=== PATIENT | female | born 1990 | race African-American/Black ===

== ENCOUNTER 2019-11-21 03:48 | Emergency (ER) | payer OTHER, SELFPAY ==
[2019-11-21] VITALS (7 sets, daily range): BP systolic 122–151; BP diastolic 85–99; PULSE 67–93; RESP 15–17; TEMP 36.3–36.6; O2SAT 96–100
--- NOTE | ~2019-11-21 | XR_ITS ---
EXAMINATION: XR chest 1V portable DATE: 11/21/2019 04:14 INDICATION: Sternal to left-sided chest pain and congestion TECHNIQUE: frontal view of the chest was obtained. COMPARISON: Chest radiograph dated 03/01/2019 FINDINGS: Calcified nodules in the left upper lung zone superimposed over a cardiac lead which along with calci fied left hilar lymph nodes consistent with old granulomatous disease. No other airspace opacities, p ulmonary edema, pleural effusion or pneumothorax. The cardiomediastinal silhouette is normal. Visuali zed bones and soft tissues are unremarkable. IMPRESSION: 1. No acute cardiopulmonary disease. Reviewed, dictated and finalized at [facility].
--- NOTE | 2019-11-21 03:58 | ECG_ITS ---
Measurements Intervals Miller Rate: 76 P: 50 AL: 174 QRS: 71 QRSD: 96 T: 31 QT: 395 QTc: 446 Interpretive Statements SINUS RHYTHM NONSPECIFIC T-WAVE ABNORMALITY- ANT/INF LEADS BORDERLINE ECG Electronically Signed On 11-21-2019 7:19:41 CDT by Tyrone Bethea D.O.
--- NOTE | 2019-11-21 04:01 | ED.CHESTPAIN ---
HPI - Chest Pain General Chief Complaint: Chest Pain Stated Complaint: cp, barnhart, high bp Time Seen by Provider: 11/21/19 03:52 History of Present Illness HPI narrative: Diffuse headache for the past several hours. Gradual onset. Located throughout entire head. throbbing in quality. Shortly after onset of the headache she also developed chest pain. This is sharp pain in the center of her chest. Intermittent. No SOB, Fever, cough, nausea, weakness, numbness. She does get frequent headaches. Related Data Home Medications Medication Instructions Recorded Confirmed No Home Medications 11/21/19 Allergies Allergy/AdvReac Type Severity Reaction Status Date / Time tramadol Allergy Hives Verified 11/21/19 03:55 Review of Systems Review of Systems: All systems reviewed & are unremarkable except as noted in HPI and below Constitutional: Constitutional: Denies fever(s) and Denies weakness Eyes: Eyes: Denies change in vision Cardiovascular: Cardiovascular: Reports chest pain Respiratory: Respiratory: Denies dyspnea Gastrointestinal: Gastrointestinal: Denies nausea Neurologic: Reports headache(s) [facility] Past Medical History Medical History (Updated 11/21/19 @ 05:17 by Wiley Mcguire MD) Healthy adult HTN (hypertension) Surgical History Surgical History No pertinent past surgical history Social History Social History Smoking status: Never smoker Gender identity (if verbalized by the patient): Female Exam Const: General: healthy appearing, no acute distress and alert Orientation/consciousness: patient oriented x3 HENMT: Head: normal to inspection Eyes: Pupils: Equal, round and reactive pupils present Neck: Neck: normal visual inspection and no lymphadenopathy Chest: Chest palpation & inspection: no tenderness Resp: Effort & Inspection: normal respiratory effort Auscultation: clear to auscultation bilaterally, no rales, no rhonchi and no wheezes Cardio: Jugular venous distension: no JVD Rate: regular rate Rhythm: regular rhythm Heart sounds: no murmurs GI: Inspection: non-distended GI Palp: Yes Soft to palpation and No Tenderness to palpation present (GI) Skin: General skin exam: normal color Neuro: General: patient oriented x3, moves all extremities, no focal motor deficits and CN's II-XI intact bilaterally Speech: normal speech Extrem: General: no edema Psych: Appearance: well kempt Affect: normal affect Course Vital Signs Vital signs: Vital Signs Temperature 36.3 C L 11/21/19 03:52 Pulse Rate 75 11/21/19 03:52 Respiratory Rate 16 11/21/19 03:52 Blood Pressure 151/94 H 11/21/19 03:52 Pulse Oximetry 100 11/21/19 03:52 Temperature 36.6 C 11/21/19 05:26 Pulse Rate 69 11/21/19 05:26 Respiratory Rate 17 11/21/19 05:26 Blood Pressure 130/97 H 11/21/19 05:26 Pulse Oximetry 100 11/21/19 05:26 MDM - Chest Pain MDM Narrative Medical decision making narrative: BARNHART and chest pain both significantly improved with treatment. Chest pain present for more than 3 hours prior to arrival. I do not believe there would be any benefit to keeping her for a 3 hour troponin. Medical Records Data Attestation: I reviewed the patient's medical records. Lab Data Attestation: I reviewed the patient's lab results. Result diagrams: 11/21/19 04:03 11/21/19 04:21 Labs: Lab Results 11/21/19 11/21/19 Range/Units 04:03 04:21 WBC 9.9 (4.5-10.0) K/mm3 RBC 5.26 (4.2-5.4) M/mm3 Hgb 13.5 (12.0-15.0) g/dL Hct 41.9 (37.0-47.0) % MCV 79.7 L (80-100) fl MCH 25.7 L (26-34) pg MCHC 32.2 (32-36) g/dl RDW 13.4 (11.5-14.5) % Plt Count 298 (150-375) k/mm3 MPV 10.2 (7.4-10.4) fl Immature Gran % (Auto) 0.2 (0-0.5) % Neut % (Auto) 50.9 (45.5-73.1) % Lymph % (Auto) 36.1 (18.3-44.2) %
[2019-11-21 04:08] LABS: Basophils Absolute Auto 0.1 K/mm3 (0.0-0.1); Basophils Percent Auto 0.6 % (0.2-1.2); Eosinophils Absolute Auto 0.4 K/mm3 (0-0.3); Eosinophils Percent Auto 4.3 % (0-4.4); Hematocrit 41.9 % (37.0-47.0); Hemoglobin 13.5 g/dL (12.0-15.0); Immature Granulocyte Absolute 0.02 K/mm3 (0.00-0.031); Immature Granulocyte Percent A 0.2 % (0-0.5); Lymphocytes Absolute Auto 3.56 K/mm3 (0.9-3.2); Lymphocytes Percent Auto 36.1 % (18.3-44.2); Mean Corpuscular HGB Conc 32.2 g/dl (32-36); Mean Corpuscular Hemoglobin 25.7 pg (26-34); Mean Corpuscular Volume 79.7 fl (80-100); Mean Platelet Volume 10.2 fl (7.4-10.4); Monocytes Absolute Auto 0.8 K/mm3 (0.1-0.6); Monocytes Percent Auto 7.9 % (2.6-8.5); Neutrophils Percent Auto 50.9 % (45.5-73.1); Platelet Count Result 298 k/mm3 (150-375); Red Blood Count 5.26 M/mm3 (4.2-5.4); Red Cell Distribution Width 13.4 % (11.5-14.5); White Blood Count 9.9 K/mm3 (4.5-10.0)
[2019-11-21] MEDS: KETOROLAC 30 MG/ML VIAL (*BKC) IV PUSH (04:10)
[2019-11-21] MEDS: METOCLOPRAMIDE HCL INJ 10 MG/2 ML VIAL IV PUSH (04:12)
[2019-11-21] MEDS: diphenhydrAMINE HCl INJ 50 MG/ML VIAL 25 MG IV PUSH (04:12)
[2019-11-21 04:38] LABS: Anion Gap 7 mmol/L (8-16); Blood Urea Nitrogen 8 mg/dL (7-17); Calcium 8.7 mg/dL (8.4-10.2); Carbon Dioxide 26 mmol/L (22-30); Chloride 105 mmol/L (98-107); Estimated Glomerular Filt Rate > 60; Glucose 88 mg/dL (65-105); Potassium 3.9 mmol/L (3.4-5.0); Sodium 138 mmol/L (137-145)
[2019-11-21 04:50] LABS: Troponin I < 0.012 ng/mL (0.000-0.034)
== END 2019-11-21 05:27 | disposition home or self-care (01) ==
PROVIDERS: Emergency Provider Emergency Medicine
DX: R51 Headache (principal); R07.89 Other chest pain; I10 Essential (primary) hypertension
CPT/HCPCS: 36415; 71045; 80048; 84484; 85025; 93005; 96374; 96375; 99284; J0131; J1200; J1885; J2765

== ENCOUNTER 2020-10-11 15:06 | Emergency (ER) | payer OTHER, SELFPAY ==
[2020-10-11 15:20] VITALS: BP 177/117; PULSE 75; RESP 18; TEMP 37.3; O2SAT 100
[2020-10-11 15:31] LABS: Basophils Absolute Auto 0.1 K/mm3 (0.0-0.1); Basophils Percent Auto 0.7 % (0.2-1.2); Eosinophils Absolute Auto 0.2 K/mm3 (0-0.3); Eosinophils Percent Auto 1.9 % (0-4.4); Hematocrit 38.7 % (37.0-47.0); Hemoglobin 12.3 g/dL (12.0-15.0); Immature Granulocyte Absolute 0.02 K/mm3 (0.00-0.031); Immature Granulocyte Percent A 0.2 % (0-0.5); Lymphocytes Absolute Auto 2.67 K/mm3 (0.9-3.2); Lymphocytes Percent Auto 29.3 % (18.3-44.2); Mean Corpuscular HGB Conc 31.8 g/dl (32-36); Mean Corpuscular Hemoglobin 25.6 pg (26-34); Mean Corpuscular Volume 80.6 fl (80-100); Mean Platelet Volume 9.7 fl (7.4-10.4); Monocytes Absolute Auto 0.6 K/mm3 (0.1-0.6); Monocytes Percent Auto 6.6 % (2.6-8.5); Neutrophils Absolute Auto 5.6 K/mm3 (1.3-6.7); Neutrophils Percent Auto 61.3 % (45.5-73.1); Platelet Count Result 355 k/mm3 (150-375); Red Cell Distribution Width 13.7 % (11.5-14.5); White Blood Count 9.1 K/mm3 (4.5-10.0)
[2020-10-11 17:09] VITALS: BP 162/116; PULSE 75; RESP 18; TEMP 37.2; O2SAT 100
--- NOTE | 2020-10-11 18:19 | ED.FEMALEGU ---
HPI - Female Genitourinary General Chief complaint: Vaginal Bleeding Stated complaint: VAG BLEEDING X 4 MONTHS Time Seen by Provider: 10/11/20 17:37 Source: patient and RN notes reviewed Mode of arrival: ambulatory Limitations: no limitations History of Present Illness HPI Narrative: Patient is 30 years old -[place] female presents with vaginal bleeding which started June 2020. Patient telling me that her IUD was removed June by Dr. Wilkins, subsequently patient started having heavy vaginal bleeding worse than her menstrual cycle, was seen by Dr. Wilkins later and started on contraceptive patch, with good results, the bleeding stopped for almost 1 week then back again. Patient was seen by Dr. Wilkins again who prescribed some intravaginal device, patient unable to use it lately because of the heavy vaginal bleeding. Patient is telling me that she is passing blood clots a lot. Patient denies any lightheadedness, headache, dizziness, shortness of breath or chest pain. Related Data Home Medications Medication Instructions Recorded Confirmed No Home Medications 11/21/19 10/11/20 Allergies Allergy/AdvReac Type Severity Reaction Status Date / Time tramadol Allergy Hives Verified 10/11/20 17:17 Review of Systems Review of Systems: Narrative: CONSTITUTIONAL: Denies fever, chills, or sweats. EYES: Denies visual changes, redness, or discharge. ENT: Denies rhinorrhea, congestion, sore throat, or otalgia. CARDIOVASCULAR: Denies chest pain, palpitations, or edema. RESPIRATORY: Denies cough or dyspnea. GASTROINTESTINAL: Denies abdominal pain, nausea, vomiting, or diarrhea. GENITOURINARY: Denies dysuria or hematuria. SKIN: Denies rash or itching. MUSCULOSKELETAL: Denies back pain, joint pain, or myalgia. NEUROLOGIC: Denies headache, numbness, or weakness. PSYCHIATRIC: Denies anxiety or depression. [facility] Past Medical History Medical History Healthy adult HTN (hypertension) Surgical History Surgical History No pertinent past surgical history Social History Social History Smoking status: Never smoker Gender identity (if verbalized by the patient): Female Exam Narrative: Exam Narrative: General appearance: Well-developed, well-nourished Skin: Normal color Head: Normocephalic, nontraumatic Eyes: Clear conjunctiva ENT: Oropharynx normal, ears normal, nose normal Neck: Supple, nontender Chest and respiratory: Airway patent, no respiratory distress, no accessory muscle use Heart: Regular rate/rhythm Abdomen: Soft, nontender, no organomegaly, quiet bowel sounds Vascular: Normal peripheral pulses, normal capillary refill. Musculoskeletal: Normal range of motion, nontender back Neurologic: Alert and oriented ?3, COMMUNICATIONS MAINTAINER is normal as tested, no gross motor deficit : External Female Exam: normal external appearance and normal appearance of the urethra Speculum Exam - Vagina: normal appearance of the vagina, normal palpation and vaginal bleeding (Trace of vaginal blood, 1 long Q-tip was enough to clean the whole vaginal.) Speculum Exam - Cervix: normal palpation Bimanual exam- vagina & uterus: normal bimanual exam Course Course Emergency Course: Stable Consultations Consultation #1: Dr. Wilkins Send patient on anti-inflammatory medication, outpatient follow-up Wednesday for office procedure. Date: 10/11/20 Time: 18:34 Vital Signs Vital signs: Vital Signs Temperature 37.3 C 10/11/20 15:20 Pulse Rate 75 10/11/20 15:20 Respiratory Rate 18 10/11/20 15:20 Blood Pressure
[2020-10-11 18:57] VITALS: BP 141/93; PULSE 74; RESP 19; O2SAT 100
== END 2020-10-11 18:58 | disposition home or self-care (01) ==
PROVIDERS: Emergency Medicine; Emergency Provider Emergency Medicine; PCP Nurse Practitioner Family
DX: N93.8 Other specified abnormal uterine and vaginal bleeding (principal); I10 Essential (primary) hypertension
CPT/HCPCS: 36415; 85025; 86850; 86880; 86900; 86901; 86902; 99284

== ENCOUNTER 2022-04-12 14:17 | Emergency (ER) | payer OTHER, SELFPAY ==
[2022-04-12 14:33] VITALS: BP 165/86; PULSE 68; RESP 16; TEMP 37.1; O2SAT 99
--- NOTE | 2022-04-12 15:06 | ED.FEMALEGU ---
HPI - Female Genitourinary General Chief complaint: Urogenital-Female Stated complaint: Vaginal Problems Time Seen by Provider: 04/12/22 15:09 Source: patient, RN notes reviewed and old records reviewed Mode of arrival: ambulatory Limitations: no limitations History of Present Illness HPI Narrative: 31-year-old female presents to the [facility] with vaginal issues. Reports that she changed her soap and then started with vaginal irritation. Patient is prone to UTIs as well as yeast infection Denies any chances of . Denies any chances of an STD Related Data Home Medications Medication Instructions Recorded Confirmed amlodipine 10 mg tablet 10 mg PO DAILY 09/17/21 09/17/21 duloxetine 30 mg capsule,delayed 60 mg PO DAILY 09/17/21 09/17/21 release famotidine 20 mg tablet 20 mg PO DAILY 09/17/21 09/17/21 lamotrigine 25 mg tablet 75 mg PO DAILY 09/17/21 09/17/21 losartan 100 mg tablet 100 mg PO DAILY 09/17/21 09/17/21 multivitamin with folic acid 400 1 tablet PO DAILY 09/17/21 09/17/21 mcg tablet (Daily-Su (with folic acid)) cyanocobalamin (vitamin B-12) mcg 04/12/22 1,000 mcg/mL injection solution ferrous sulfate 325 mg (65 mg mg 04/12/22 iron) tablet (FeroSul) syringe with needle 3 mL 21 gauge 04/12/22 04/12/22 x 1 (BD Luer-Liza Syringe) Allergies Allergy/AdvReac Type Severity Reaction Status Date / Time tramadol Allergy Hives Verified 04/12/22 14:21 Review of Systems Review of Systems: All systems reviewed & are unremarkable except as noted in HPI and below Constitutional: Constitutional: Reports no additional constitutional complaints Eyes: Eyes: Reports no additional eye complaints ENT: Reports system reviewed and no additional complaints, except as documented Cardiovascular: Cardiovascular: Reports no additional cardiovascular complaints, Denies chest pain and Denies dyspnea Respiratory: Respiratory: Reports no additional respiratory complaints, Denies chest congestion, Denies cough and Denies dyspnea Gastrointestinal: Gastrointestinal: Reports no additional gastrointestinal complaints, Denies abdominal pain, Denies nausea and Denies vomiting Genitourinary: Genitourinary: Reports as per HPI, Denies nocturia, Denies genital lesions, Reports dysuria and Reports vaginal discharge Musculoskeletal: Musculoskeletal: Reports no additional musculoskeletal complaints Integumentary/Breasts: Skin/Breast: Reports system reviewed and no additional complaints, except as docu Neurologic: Reports system reviewed and no additional complaints, except as documented Psychiatric: Psychiatric: Reports no additional psychiatric complaints Allergic/Immunologic: Allergic/Immunologic: Reports no additional allergic/immunologic complaints PMFSH Past Medical History Medical History Anemia Asthma Healthy adult Hematuria History of endometrial biopsy HTN (hypertension) Surgical History Surgical History History of tonsillectomy No pertinent past surgical history Social History Social History Smoking status: Never smoker Gender identity (if verbalized by the patient): Female Comments At the time of my signature, I reviewed and agree with the nursing past medical, surgical, social, and family history. There is no relevant family history pertinent to the patient complaint. Exam Const: General: cooperative, healthy appearing, comfortable, no acute distress, well developed, alert and well nourished Nutritional Appearance: well nourished and obese Orientation/consciousness: patient oriented x3 Limitations: no limitations HENMT: Head: normal to inspection Ears: hearing grossly normal bilaterally and external ears normal Face/Nose/Sinus: Normal external nose present, Normal nares present, Normal nasal mucous membranes and turbinate
== END 2022-04-12 15:33 | disposition home or self-care (01) ==
PROVIDERS: Emergency Provider Nurse Practitioner; PCP Nurse Practitioner Family
DX: N39.0 Urinary tract infection, site not specified (principal); J45.909 Unspecified asthma, uncomplicated; I10 Essential (primary) hypertension
CPT/HCPCS: 81003; 87086; 87088; 99213; G0463

== ENCOUNTER 2022-04-22 16:40 | Emergency (ER) | payer OTHER, SELFPAY ==
[2022-04-22 17:00] VITALS: BP 165/97; PULSE 80; RESP 16; TEMP 36.5; O2SAT 100
--- NOTE | 2022-04-22 17:28 | ED.FEMALEGU ---
HPI - Female Genitourinary General Chief complaint: Urogenital-Female Stated complaint: vaginal discharge Time Seen by Provider: 04/22/22 17:28 Source: patient and RN notes reviewed Mode of arrival: ambulatory Limitations: no limitations History of Present Illness HPI Narrative: 31-year-old female presented for vaginal irritation intermittently for 2 weeks. She was seen at the [facility] on 04/12/2022 for similar complaints. She was treated for UTI and BV as well as a yeast infection, however she states she took the yeast infection medication prior to the antibiotics and she does not believe the yeast infection resolved. She states while she is here she would also like to be tested for gonorrhea and chlamydia, denies known exposure. Denies hematuria, urinary frequency, urgency, abdominal pain, nausea, vomiting, diarrhea, flank pain, fevers or chills. Related Data Home Medications Medication Instructions Recorded Confirmed amlodipine 10 mg tablet 10 mg PO DAILY 09/17/21 09/17/21 duloxetine 30 mg capsule,delayed 60 mg PO DAILY 09/17/21 09/17/21 release famotidine 20 mg tablet 20 mg PO DAILY 09/17/21 09/17/21 lamotrigine 25 mg tablet 75 mg PO DAILY 09/17/21 09/17/21 losartan 100 mg tablet 100 mg PO DAILY 09/17/21 09/17/21 multivitamin with folic acid 400 1 tablet PO DAILY 09/17/21 09/17/21 mcg tablet (Daily-Su (with folic acid)) cyanocobalamin (vitamin B-12) mcg 04/12/22 1,000 mcg/mL injection solution ferrous sulfate 325 mg (65 mg mg 04/12/22 iron) tablet (FeroSul) syringe with needle 3 mL 21 gauge 04/12/22 04/12/22 x 1 (BD Luer-Liza Syringe) Allergies Allergy/AdvReac Type Severity Reaction Status Date / Time tramadol Allergy Hives Verified 04/22/22 17:38 Review of Systems Review of Systems: CONSTITUTIONAL: Denies body aches, fever, chills, or sweats. CARDIOVASCULAR: Denies chest pain, palpitations, or edema. RESPIRATORY: Denies cough or dyspnea. GASTROINTESTINAL: Denies abdominal pain, nausea, vomiting, or diarrhea. GENITOURINARY: denies dysuria, frequency, urgency, hematuria, flank pain SKIN: Denies rash, itching, or wounds. MUSCULOSKELETAL: Denies back pain or myalgia. [facility] Past Medical History Medical History Anemia Asthma Healthy adult Hematuria History of endometrial biopsy HTN (hypertension) Surgical History Surgical History History of tonsillectomy No pertinent past surgical history Social History Social History Smoking status: Never smoker Gender identity (if verbalized by the patient): Female Comments At time of signature, I have reviewed and agree with nursing past medical, surgical, social and family history unless otherwise noted. Please see nursing chart for further information. There is no relevant family history pertinent to the presenting complaint Exam Narrative: GENERAL: Well-appearing ENT: Mucous membranes pink and moist. NECK: Normal AROM. Supple. CHEST: No respiratory distress. Clear to auscultation. HEART: Regular rate and rhythm. ABDOMEN: Soft, nontender, nondistended, normal active bowel sounds. No CVA tenderness SKIN: Warm, dry, no rash. NEURO: No focal deficits. Alert and oriented x3. Gait steady. PSYCH: Normal affect. Course Course Emergency Course: Patient is aware of diagnosis, understands and agrees to treatment plan. Anticipatory guidance given. Patient agrees to follow-up as directed and is aware of reasons to seek care at the emergency department. Portions of this record may have been created with voice recognition software Level of Care: Express Care Visit Vital Signs Vital signs: Vital Signs Temperature 97.7 F 04/22/22 17:00 Pulse Rate 80 04/22/22 17:00 Respiratory Rate 16 04/22/22 17:00 Blood Pressure 165/97 H 04/22/22 17:00 Pu
== END 2022-04-22 17:56 | disposition home or self-care (01) ==
PROVIDERS: Emergency Provider Nurse Practitioner Family
DX: B37.31 Acute candidiasis of vulva and vagina (principal); Z11.3 Encounter for screening for infections with a predominantly sexual mode of transmission; J45.909 Unspecified asthma, uncomplicated; I10 Essential (primary) hypertension
CPT/HCPCS: 81003; 87086; 87491; 87591; 87661; 99214; G0463

== ENCOUNTER 2022-06-06 10:19 | Emergency (ER) | payer OTHER, SELFPAY ==
--- NOTE | ~2022-06-06 | US_ITS ---
US pelvic complete w TV DATE: 06/06/2022 11:49 INDICATION: Vaginal bleeding TECHNIQUE: Real-time imaging via transabdominal and transvaginal approaches COMPARISON: None FINDINGS: The uterus measures 7 cm height, 4.6 cm AP and 6.0 cm transverse dimension. Central endomet rial echo complex measures 2.4 mm AP dimension. There is a 2.4 x 2.3 x 2.6 cm heterogeneous mass with vascularity knee anterior uterine fundic area; differential diagnosis includes uterine fibroid, endometrial malignancy. Right ovary measures 4.2 x 3.0 x 2.8 cm, with vascular flow. Left ovary measures 4.4 x 2.6 x 2.4 cm, with vascular flow. No abnormal pelvic free fluid collection. IMPRESSION: 2.4 x 2.3 x 2.6 cm heterogeneous uterine fundic mass with vascularity; differential diagn osis includes uterine fibroid, endometrial malignancy Reviewed, dictated and finalized at [facility]. Reviewed, dictated and finalized at [facility]. F DEVELOPMENT COORDINATOR IMPRESSION: 2.4 x 2.3 x 2.6 cm heterogeneous uterine fundic mass with vasculari ty; differential diagnosis includes uterine fibroid, endometrial malignancy
[2022-06-06 10:31] VITALS: BP 133/84; PULSE 80; RESP 18; TEMP 36.9; O2SAT 100
[2022-06-06 11:01] LABS: Basophils Absolute Auto 0.1 K/mm3 (0.0-0.1); Basophils Percent Auto 0.6 % (0.2-1.2); Eosinophils Absolute Auto 0.2 K/mm3 (0-0.3); Eosinophils Percent Auto 2.5 % (0-4.4); Hematocrit 30.3 % (37.0-47.0); Hemoglobin 9.2 g/dL (12.0-15.0); Immature Granulocyte Absolute 0.02 K/mm3 (0.00-0.031); Immature Granulocyte Percent A 0.3 % (0-0.5); Lymphocytes Absolute Auto 2.44 K/mm3 (0.9-3.2); Lymphocytes Percent Auto 30.9 % (18.3-44.2); Mean Corpuscular HGB Conc 30.4 g/dl (32-36); Mean Corpuscular Hemoglobin 23.1 pg (26-34); Mean Corpuscular Volume 75.9 fl (80-100); Monocytes Absolute Auto 0.6 K/mm3 (0.1-0.6); Neutrophils Absolute Auto 4.6 K/mm3 (1.3-6.7); Neutrophils Percent Auto 57.7 % (45.5-73.1); Platelet Count Result 307 k/mm3 (150-375); Red Blood Count 3.99 M/mm3 (4.2-5.4); Red Cell Distribution Width 15.7 % (11.5-14.5); White Blood Count 7.9 K/mm3 (4.5-10.0)
[2022-06-06 11:12] VITALS: BP 132/93; PULSE 78
[2022-06-06 11:14] VITALS: BP 164/105; PULSE 84
[2022-06-06] MEDS: SODIUM CHLORIDE 0.9% IV 1,000 ML 999 ML IV CONT (11:15)
[2022-06-06 11:28] LABS: Alanine Aminotransferase 26 U/L (6-35); Albumin Level 4.1 g/dL (3.5-5.1); Alkaline Phosphatase 88 U/L (38-126); Anion Gap 5 mmol/L (8-16); Aspartate Amino Transferase 24 U/L (14-36); Bilirubin,Total 0.4 mg/dL (0.2-1.3); Blood Urea Nitrogen 13 mg/dL (7-17); Calcium 8.9 mg/dL (8.4-10.2); Carbon Dioxide 28 mmol/L (22-30); Chloride 104 mmol/L (98-107); Estimated CRCL calculation 147 ml/min; Estimated Glomerular Filt Rate > 60; Glucose 102 mg/dL (65-110); Sodium 137 mmol/L (137-145)
[2022-06-06 11:33] LABS: INR 1.2; Prothrombin Time 14.3 Seconds (11.1-14.7)
[2022-06-06 11:34] LABS: Partial Thromboplastin Time 32.2 SECONDS (22.3-36.8)
--- NOTE | 2022-06-06 13:16 | ED.GENADULT ---
HPI - General Adult General Chief complaint: Vaginal Bleeding Stated complaint: Menstrual cycle 27 days, c/o shakiness Time Seen by Provider: 06/06/22 10:27 History of Present Illness HPI narrative: Patient is a 31-year-old female who presents to the ER with vaginal bleeding. Ongoing for 27 days. Not typical for her. She reports she is started get lightheaded over the last day so she have to come in for evaluation. Her electrical assembly supervisor recently retired and she tried to make an appointment but is not until mid June. She has no chest pain or chest pressure. No exertional shortness of breath. She does not take any blood thinners. No vaginal discharge. No urinary symptoms. Related Data Home Medications Medication Instructions Recorded Confirmed amlodipine 10 mg tablet 10 mg PO DAILY 09/17/21 09/17/21 duloxetine 30 mg capsule,delayed 60 mg PO DAILY 09/17/21 09/17/21 release famotidine 20 mg tablet 20 mg PO DAILY 09/17/21 09/17/21 lamotrigine 25 mg tablet 75 mg PO DAILY 09/17/21 09/17/21 losartan 100 mg tablet 100 mg PO DAILY 09/17/21 09/17/21 multivitamin with folic acid 400 1 tablet PO DAILY 09/17/21 09/17/21 mcg tablet (Daily-Su (with folic acid)) cyanocobalamin (vitamin B-12) mcg 04/12/22 1,000 mcg/mL injection solution ferrous sulfate 325 mg (65 mg mg 04/12/22 iron) tablet (FeroSul) syringe with needle 3 mL 21 gauge 04/12/22 04/12/22 x 1 (BD Luer-Liza Syringe) Allergies Allergy/AdvReac Type Severity Reaction Status Date / Time tramadol Allergy Hives Verified 06/06/22 10:34 Review of Systems Review of Systems: All systems reviewed & are unremarkable except as noted in HPI and below Constitutional: Constitutional: Denies chills and Denies fever(s) ENT: Denies nasal congestion and Denies sore throat Cardiovascular: Cardiovascular: Denies chest pain, Denies rapid heart rate and Denies radiating jaw, neck or arm pain Respiratory: Respiratory: Denies cough and Denies dyspnea Gastrointestinal: Gastrointestinal: Denies abdominal pain, Denies nausea and Denies vomiting Genitourinary: Genitourinary: Reports abnormal vaginal bleeding, Denies nocturia, Denies flank pain and Denies vaginal discharge Neurologic: Reports dizziness, Denies syncope, Denies focal weakness and Denies numbness PMFSH Past Medical History Medical History Anemia Asthma Healthy adult Hematuria History of endometrial biopsy HTN (hypertension) Surgical History Surgical History History of tonsillectomy No pertinent past surgical history Social History Social History Smoking status: Never smoker Gender identity (if verbalized by the patient): Female Exam Narrative: GENERAL: Well-appearing, well-nourished, and in no acute distress. HEAD: Normocephalic, atraumatic. ENT: Mucous membranes moist. CHEST: Clear to auscultation. No respiratory distress. HEART: Regular rate and rhythm. Normal peripheral pulses. : Normal external genitalia. Moderate amount of dark blood within the vagina without large clots. No active redundant tissue obscures cervix. ABDOMEN: Soft, nontender, nondistended, normal active bowel sounds. EXTREMITIES: Normal range of motion. No edema. SKIN: Warm, dry, no rash. NEURO: Alert and oriented x3. PSYCH: Normal mood and affect. Course Course Emergency Course: Patient resting comfortably. Discussed case with Dr. Burton who recommends patient be placed on tranexamic acid 1300 mg 3 times a day. Patient will be need to have close follow-up for further evaluation. Patient aware of diagnosis and treatment plan. No additional questions. Return precautions given. Vital Signs Vital signs: Vital Signs Temperature 98.4 F 06/06/22 10:31 Pulse Rate 80 06/06/22 10:31 Respiratory Rate 18 06/06/22 10:31 Blood Pressur
[2022-06-06 13:33] VITALS: BP 142/86; PULSE 69; RESP 20; O2SAT 99
== END 2022-06-06 13:34 | disposition home or self-care (01) ==
PROVIDERS: Emergency Provider Emergency Medicine
DX: N93.9 Abnormal uterine and vaginal bleeding, unspecified (principal); N85.8 Other specified noninflammatory disorders of uterus; J45.909 Unspecified asthma, uncomplicated; I10 Essential (primary) hypertension; Z86.2 Personal history of diseases of the blood and blood-forming organs and certain disorders involving the immune mechanism
CPT/HCPCS: 36415; 76830; 76856; 80053; 81025; 85025; 85610; 85730; 96360; 96361; 99284; J7030

== ENCOUNTER 2022-12-08 13:02 | Emergency (ER) | payer OTHER, SELFPAY ==
[2022-12-08 13:14] VITALS: BP 146/96; PULSE 73; RESP 16; TEMP 36.7; O2SAT 99
--- NOTE | 2022-12-08 14:21 | ED.GENADULT ---
HPI - General Adult General Chief complaint: Upper Respiratory Infection Stated complaint: Sinus/Ears Irritation Source: patient Mode of arrival: ambulatory Limitations: no limitations History of Present Illness HPI narrative: Patient presents for evaluation of sick symptoms for last 3 days. Symptoms include sinus congestion, green nasal discharge, drainage from left ear only when she wakes from sleep in the morning and sensation of thick sputum in the back of her throat. she denies any fever, chills, nausea, vomiting, diarrhea, tinnitus, hearing loss or other symptoms. No recent sick contacts to her knowledge. She tried taking Tylenol and some other unknown [id number] agents. She had COVID several years ago. She does not smoke. Related Data Home Medications Medication Instructions Recorded Confirmed clonidine HCl 0.1 mg tablet mg 12/08/22 gabapentin 300 mg capsule mg 12/08/22 hydrochlorothiazide 25 mg tablet 25 mg PO DAILY 12/08/22 12/08/22 hydrocodone 10 mg-acetaminophen tablet 12/08/22 325 mg tablet Allergies Allergy/AdvReac Type Severity Reaction Status Date / Time tramadol Allergy Hives Verified 12/08/22 13:16 Review of Systems Review of Systems: CONSTITUTIONAL: Denies fever, chills, or sweats. EYES: Denies visual changes, redness, or discharge. ENT: Reports drainage from the left ear in the morning, thick sputum in the back of the throat, nasal congestion and thick green nasal discharge. Denies sore throat, tinnitus, ear pain CARDIOVASCULAR: Denies chest pain, palpitations, or edema. RESPIRATORY: Denies cough or dyspnea. GASTROINTESTINAL: Denies abdominal pain, nausea, vomiting, or diarrhea. GENITOURINARY: Denies dysuria or hematuria. SKIN: Denies rash or itching. MUSCULOSKELETAL: Denies back pain, joint pain, or myalgia. NEUROLOGIC: Denies headache, numbness, dizziness, or weakness. PSYCHIATRIC: Denies anxiety or depression. [facility] Past Medical History Medical History Anemia Asthma Healthy adult Hematuria History of endometrial biopsy HTN (hypertension) Surgical History Surgical History History of tonsillectomy No pertinent past surgical history Family History Family History Mother Family history non-contributory Social History Social History Smoking status: Never smoker Alcohol intake: never Substance use: never Living arrangements: with family Gender identity (if verbalized by the patient): Female Spiritual care concerns: No Exam Narrative: GENERAL: Well-appearing, well-nourished, and in no acute distress. HEAD: Normocephalic, atraumatic. EYES: PERRLA and EOMI. ENT: There is thick green drainage in bilateral nares. Mucous membranes moist. Oropharynx without tonsillar hypertrophy exudate or other lesions. Bilateral TMs pearly aguilera nonbulging NECK: Supple. No adenopathy or masses. No carotid bruits or JVD CHEST: Clear to auscultation. No respiratory distress. No wheezes rales or rhonchi HEART: Regular rate and rhythm. No murmur heard. Normal peripheral pulses. ABDOMEN: Soft, nontender, nondistended, normal active bowel sounds. EXTREMITIES: Normal range of motion. No edema. SKIN: Warm, dry, no rash. NEURO: No focal deficits. Alert and oriented x3. PSYCH: Normal mood and affect. Course Course Emergency Course: this is a 32-year-old female who presented for evaluation of sick symptoms. Strep and COVID negative. She does meet criteria for ABRS based on mucopurulent discharge from the nares. Will treat with Augmentin. She requested a refill on her albuterol inhaler. Medication was sent to her pharmacy. Recommended she repeat a COVID test in 48 hours. Increase hydration. [id number] agents for sym
== END 2022-12-08 15:20 | disposition home or self-care (01) ==
PROVIDERS: Emergency Provider Nurse Practitioner; PCP Nurse Practitioner Family
DX: J32.9 Chronic sinusitis, unspecified (principal); Z20.822 Contact with and (suspected) exposure to COVID-19; J45.909 Unspecified asthma, uncomplicated; I10 Essential (primary) hypertension
CPT/HCPCS: 87081; 87426; 87880; 99213; C9803; G0463

== ENCOUNTER 2024-11-07 10:41 | Outpatient (CLI) | payer BC, SELFPAY ==
--- NOTE | ~2024-11-07 | MR_ITS ---
MRI of the right knee Clinical history: Pain Technique: Coronal proton density and proton density-weighted images, sagittal proton-density and T2 fat-sat images, and axial proton-density fat-saturated images were acquired. Findings: Anterior and posterior cruciate ligaments are intact. Medial collateral ligament and the la teral collateral ligament complex are intact. Popliteus tendon is intact. Medial and lateral menisci are intact, without evidence of tear. Articular cartilage is well preserved throughout the knee. No significant bone marrow signal abnormal ity identified. There is a circumscribed ovoid markedly T2 hyperintense lesion at the posterior aspec t of the distal femur, most likely benign. Extensor mechanism is intact. No joint effusion or Spangler's cyst. Impression: No ligamentous injury or meniscal tear. Circumscribed ovoid markedly T2 hyperintense lesion in the posterior aspect of the distal femur, most likely benign. Reviewed, dictated and finalized at [facility]. Impression: No ligamentous injury or meniscal tear. Circumscribed ovoid markedly T2 hyperintense lesion in the posterior aspect of the distal femur, most likely benign.
== END 2024-11-07 10:42 | disposition home or self-care (01) ==
LOC: GOSHIMG 10:42
PROVIDERS: PCP Orthopaedic Surgery; Visit Provider Orthopaedic Surgery
DX: M25.561 Pain in right knee (principal)
CPT/HCPCS: 73721